=== PATIENT | male | born 1970 | race Caucasian/White ===

== ENCOUNTER 2017-01-27 10:38 | Emergency (ER) | payer BC ==
[2017-01-27 10:48] VITALS: O2SAT 100
[2017-01-27] MEDS ORDERED: Lidocaine/Epi 1% 1:100000 20 ML IJ ONE (11:28)
[2017-01-27] MEDS ORDERED: Lidocaine 2% w Epi 1:100,000 Inj IJ ONE (11:36)
--- NOTE | 2017-01-27 11:52 | C.PDOC ---
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 Patient denies LOC, headache, neck pain, weakness or numbness. 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 Musculoskeletal: Negative for: Neck Pain Skin: Positive for: Other (Car door "bit" above the right eye ) Neurological: Negative for: Weakness, Numbness, Headache Physical Exam - Physical Exam Appears: Well, Non-toxic, No Acute Distress Skin: Warm, Dry, No Rash Head: Atraumatic, Normacephalic, Other (2cm laceration above the right eye ) Eye(s): bilateral: Normal Inspection, PERRL, EOMI Oral Mucosa: Moist Neck: Normal, Normal ROM, Supple Chest: Symmetrical, No Tenderness Cardiovascular: Rhythm Regular, No Murmur Respiratory: Normal Breath Sounds, No Rales, No Rhonchi, No Stridor, No Wheezing Extremity: Normal ROM, No Swelling ED Course And Treatment O2 Sat by Pulse Oximetry: 100 Laceration - Laceration Repair Above the right eye Wound Length (In cm): 2 Description Of Wound: Linear Wound Cleansed With: Betadine Anesthesia: Lidocaine 2%, With Epi Wound Examination: Irrigated With Saline Wound Closure: Suture (5) Suture Technique And Material Used: Prolene (6-0) Wound Complexity: Simple Medical Decision Making Medical Decision Making: PLAN: * Tetanus IM Disposition Counseled Patient/Family Regarding: Need For Followup - Disposition Disposition: HOME/ ROUTINE Disposition Time: 11:50 Condition: GOOD Additional Instructions: stiches out in 5 - 7 days Instructions: Care For Your Stitches (ED), Acute Wound Care (ED) - Clinical Impression Clinical Impression: Laceration of eyebrow, right - Scribe Statement The provider has reviewed the documentation as recorded by the Scribe Ese Morales Provider Attestation: All medical record entries made by the Scribe were at my direction and personally dictated by me. I have reviewed the chart and agree that the record accurately reflects my personal performance of the history, physical exam, medical decision making, and the department course for this patient. I have also personally directed, reviewed, and agree with the discharge instructions and disposition.
[2017-01-27] MEDS ORDERED: Lidocaine/Epi 1% 1:100000 20 ML IJ STA (11:55)
[2017-01-27] MEDS ORDERED: Bacitracin 500 Units/gm Oint Foilpak UD ONE (11:56)
[2017-01-27] MEDS ORDERED: Epinephrine /Lidocaine HCL 1:100,000/2% 30 ml INJ STA (11:56)
[2017-01-27 12:04] VITALS: BP 132/78; PULSE 83; RESP 18; TEMP 99.4
== END 2017-01-27 12:07 | disposition home or self-care (01) ==
LOC: C.ER 10:38
DX: S01.111A Laceration without foreign body of right eyelid and periocular area, initial encounter (principal); X58.XXXA Exposure to other specified factors, initial encounter

== ENCOUNTER 2017-02-03 12:11 | Emergency (ER) | payer BC | END 2017-02-03 14:00 | disposition home or self-care (01) | LOC: C.ER 12:11 | DX: Z48.02 Encounter for removal of sutures (principal) ==